=== PATIENT | male | born 1990 | race Caucasian/White ===

== ENCOUNTER 2016-08-30 22:54 | Inpatient (IN) | payer OTHER ==
--- NOTE | 2016-08-30 23:06 | C.PDOC ---
<Blane Morgan E - Last Filed: 08/30/16 23:06> <Iban Newton R - Last Filed: 08/31/16 00:20> Time Seen by Provider: 08/30/16 22:59 Chief Complaint (Nursing): Substance Abuse Past Medical History - Medical History PMH: Denies: Diabetes, Hepatitis, HIV, HTN, Chronic Kidney Disease, Seizures, Sexually Transmitted Disease - Social History Hx Tobacco Use: Yes Hx Alcohol Use: Yes Hx Substance Use: Yes - Immunization History Hx Tetanus Toxoid Vaccination: No Hx Influenza Vaccination: No Hx Pneumococcal Vaccination: No <Blane Morgan - Last Filed: 08/30/16 23:06> ED Course And Treatment O2 Sat by Pulse Oximetry: 98 <Blane Morgan - Last Filed: 08/30/16 23:06> - Laboratory Results Result Diagrams: 08/30/16 23:58 <Iban Newton - Last Filed: 08/31/16 00:20> Medical Decision Making <Blane Morgan - Last Filed: 08/30/16 23:06> <Iban Newton - Last Filed: 08/31/16 00:20> Medical Decision Makin: alcohol abuse. BIB Police for safety, no SI/HI, pending sobriety. (Blane Morgan)
[2016-08-30] MEDS ORDERED: Sodium Chloride 0.9% 1,000 ML IV ONE (23:16)
[2016-08-30] MEDS ORDERED: Sodium Chloride 0.9% 1,000 ML ONE (23:26)
[2016-08-31 00:03] LABS: BASO # 0.1 K/uL (0.0-0.2); EOS % 0.1 % (0.0-4.0); HEMOGLOBIN 17.1 g/dL (12.0-18.0); LYMPH # 2.9 K/uL (1.0-4.3); LYMPH % 19.1 % (20.0-40.0); MEAN CELL VOLUME 85.3 fL (80.0-94.0); MEAN CORPUSCULAR HEMOGLOBIN 28.7 pg (27.0-31.0); MEAN CORPUSCULAR HGB CONC 33.7 g/dL (33.0-37.0); MEAN PLATELET VOLUME 7.1 fL (7.2-11.7); MONO # 0.7 K/uL (0.0-0.8); MONO % 4.4 % (0.0-10.0); NEUT # 11.4 K/uL (1.8-7.0); NEUT % 75.4 % (50.0-75.0); NRBC % 0.2 % (0.0-2.0); RBC 5.97 Mil/uL (4.40-5.90); RED CELL DISTRIBUTION WIDTH 13.7 % (11.5-14.5); WHITE BLOOD COUNT 15.1 K/uL (4.8-10.8)
--- NOTE | 2016-08-31 00:15 | C.PDOC ---
History Of Present Illness A 25 y/o M comes in for ETOH intoxication and epigastic pain and vomiting that began today. Denies suicidal, homicidal, fever, chills, nausea, diarrhea, chest pain, SOB, or any other complaints. Time Seen by Provider: 08/30/16 22:59 Chief Complaint (Nursing): Substance Abuse History Per: Patient History/Exam Limitations: no limitations Onset/Duration Of Symptoms: Hrs Current Symptoms Are (Timing): Still Present Suicide/Self Injury Attempted (Context): None Modifying Factor(s): Alcohol Severity: Mild Associated Symptoms: denies: Suicidal Thoughts, Suicidal Plan Involuntary Hold By: None Recent travel outside of the [place]: No Additional History Per: Patient Past Medical History Reviewed: Historical Data, Nursing Documentation, Vital Signs Vital Signs: Last Vital Signs Temp 97.7 F 08/31/16 06:10 Pulse 72 08/31/16 06:10 Resp 16 08/31/16 06:10 BP 127/82 08/31/16 06:10 Pulse Ox 96 08/31/16 06:10 - Medical History PMH: Denies: Diabetes, Hepatitis, HIV, HTN, Chronic Kidney Disease, Seizures, Sexually Transmitted Disease - PreCision Dermatology Procedures DETOXIFICATION SERVICES FOR SUBSTANCE ABUSE TREATMENT (03/14/15) GROUP PSYCHOTHERAPY (03/14/15) Family History: States: Unknown Family Hx - Social History Hx Tobacco Use: Yes Hx Alcohol Use: Yes Hx Substance Use: Yes - Immunization History Hx Tetanus Toxoid Vaccination: No Hx Influenza Vaccination: No Hx Pneumococcal Vaccination: No Review Of Systems Except As Marked, All Systems Reviewed And Found Negative. Constitutional: Negative for: Fever, Chills Cardiovascular: Negative for: Chest Pain Respiratory: Negative for: Shortness of Breath Gastrointestinal: Positive for: Vomiting, Abdominal Pain. Negative for: Nausea , Diarrhea Physical Exam - Physical Exam Appears: Non-toxic, No Acute Distress Skin: Warm, Dry Head: Atraumatic, Normacephalic Cardiovascular: Rhythm Regular Respiratory: Normal Breath Sounds, No Accessory Muscle Use, No Rales, No Rhonchi , No Wheezing Gastrointestinal/Abdominal: Soft, Tenderness (Epigastric tenderness), No Guarding, No Rebound Neurological/Psych: Oriented x3, Normal Speech, Normal Cognition, Other (Awake and alert) ED Course And Treatment - Laboratory Results Result Diagrams: 08/30/16 23:58 08/30/16 23:58 O2 Sat by Pulse Oximetry: 98 (RA) Pulse Ox Interpretation: Normal Medical Decision Making Medical Decision Making: Impression: A 25 y/o M comes in for etoh intoxication and epigastic pain and vomiting that began today. Plans: -Blood labs -Zofran -Pepcid -IV fluids 2300: alcohol abuse. BIB Police for safety, no SI/HI, pending sobriety Disposition Discussed With Dr.: Stephen Starks Doctor Will See Patient In The: Hospital Counseled Patient/Family Regarding: Diagnosis - Disposition Disposition: HOSPITALIZED Disposition Time: 06:42 Condition: STABLE - POA Present On Arrival: None - Clinical Impression Clinical Impression: Alcohol abuse, Depression, Depressive disorder - Scribe Statement The provider has reviewed the documentation as recorded by the Scribe Kiera brady All medical record entries made by the Scribe were at my direction and personally dictated by me. I have reviewed the chart and agree that the record accurately reflects my personal performance of the history, physical exam, medical decision making, and the department course for this patient. I have also personally directed, reviewed, and agree with the discharge instructions and disposition.
[2016-08-31 00:21] LABS: ALB/GLOB RATIO 1.3 (1.0-2.1); ALBUMIN 4.4 g/dL (3.5-5.0); ALT/SGPT 59 U/L (21-72); AST/SGOT 54 U/L (17-59); BLOOD UREA NITROGEN 16 mg/dL (9-20); CALCIUM 8.2 mg/dl (8.6-10.4); GFR AFRICAN-AMERICAN > 60; GFR NON-AFRICAN AMERICAN > 60; LIPASE 167 U/L (23-300)
[2016-08-31 06:29] LABS: URINE BACTERIA RARE (<OCC); URINE BILIRUBIN NEGATIVE (NEGATIVE); URINE BLOOD 2+ (NEGATIVE); URINE CLARITY Clear (Clear); URINE COLOR Yellow (YELLOW); URINE GLUCOSE (UA) NORMAL (Normal); URINE LEUKOCYTE ESTERASE NEG Leu/uL (Negative); URINE NITRATE NEGATIVE (NEGATIVE); URINE PROTEIN 2+ mg/dL (NEGATIVE); URINE UROBILINOGEN NORMAL mg/dL (0.2-1.0)
[2016-08-31 06:38] LABS: BARBITURATES, UR NEGATIVE (NEGATIVE)
[2016-08-31 06:39] LABS: BENZODIAZEPINES, UR NEGATIVE (NEGATIVE)
[2016-08-31 06:41] LABS: OPIATES, UR NEGATIVE (NEGATIVE)
[2016-08-31 06:42] LABS: PHENCYCLIDINE, UR NEGATIVE (NEGATIVE)
[2016-08-31] MEDS ORDERED: Lidocaine 2% Viscous 100 ml PO STA (08:48)
[2016-08-31] MEDS ORDERED: Belladonna-Phenobarbital PO STA (08:48)
[2016-08-31] MEDS ORDERED: Aluminum Hydroxide/Magnesium Hydroxide Susp (30 mL) PO STA (08:48)
[2016-08-31] MEDS ORDERED: Sodium Chloride 0.9% 1,000 ML IV ONE (08:48)
[2016-08-31] MEDS ORDERED: Sodium Chloride 0.9% 1,000 ML ONE (08:53)
[2016-08-31] MEDS ORDERED: Aluminum Hydroxide/Magnesium Hydroxide Susp (30 mL) ONE (09:10)
[2016-08-31] MEDS ORDERED: Belladonna-Phenobarbital ONE (09:10)
[2016-08-31 09:23] LABS: BASO # 0.1 K/uL (0.0-0.2); BASO % 0.8 % (0.0-2.0); EOS # 0.1 K/uL (0.0-0.7); EOS % 0.5 % (0.0-4.0); HEMOGLOBIN 14.5 g/dL (12.0-18.0); LYMPH # 4.6 K/uL (1.0-4.3); LYMPH % 40.8 % (20.0-40.0); MEAN CELL VOLUME 85.2 fL (80.0-94.0); MEAN CORPUSCULAR HEMOGLOBIN 28.6 pg (27.0-31.0); MEAN CORPUSCULAR HGB CONC 33.6 g/dL (33.0-37.0); MEAN PLATELET VOLUME 7.1 fL (7.2-11.7); MONO # 0.7 K/uL (0.0-0.8); MONO % 5.9 % (0.0-10.0); NEUT # 5.8 K/uL (1.8-7.0); RBC 5.08 Mil/uL (4.40-5.90); RED CELL DISTRIBUTION WIDTH 13.5 % (11.5-14.5); WHITE BLOOD COUNT 11.2 K/uL (4.8-10.8)
--- NOTE | 2016-08-31 10:32 | PCM.BM ---
Treatment Plan Problems - Problems identified on initial assessmt Problem 1 Date Initiated: 08/31/16 Time Initiated: 10:30 Date resolved: 09/02/16 Assessment reference: NA Status: Active Priority: 1 Treatment assets and liabiliti Patient Assests: cooperative Patient Liabilities: substance abuse
--- NOTE | 2016-08-31 11:27 | PCM.PSYCH ---
Initial Psychiatric Evaluation - Initial Psychiatric Evaluation Type of Admission: Voluntary Legal Status: Capacity Chief Complaint (in patient's own words): 'I am seeing things.' History of Present Illness and Precipitating Events: Pt. is a 25 y/o HM from [facility], was brought to Ed by ambulance and [place] police after they found him intoxicated. Pt was intoxicated, confused, and disorganized. Pt. had a BAL of 257. Pt. remained superficially cooperative but guarded about the details. He reports that he has been feeling depressed because he is homesick and wants to return to [facility]. Pt. reports that he is currently living with his father, but he does not feel connected to him. Pt. reports that he saw his father for the first time when he was about 10 years old. Pt. reports that he sometimes self-cut when he feels depressed. He reports of drinking 3-4 pints on a daily basis. Yesterday he consumed more than 4 pnts of vodka and found himself in the hospital. It was unclear that if pt attempted suicide by OD on alcohol. He reports depressed mood, poor sleep and poor appetite. He also reports visual hallucinations of people and animals and persecutory delusions that people are following him. However he denies any AH. Pt. feels that he drinks alcohol because of the loneliness and his desire to return back to his home country. He reports withdrawal symptoms including shakes, nausea, abdominal upset, headache and anxiety. PMH None reported Past Psychiatric History - Past Psychiatric History Previous Treatment History: Inpatient Pertinent Medical Hx (Current Medical&Sleep Prob, Allergies): Allergies Allergy/AdvReac Type Severity Reaction Status Date / Time No Known Allergies Allergy Verified 03/14/15 09:38 No Known Home Med 08/31/16 Review of Systems - Review of Systems All systems: reviewed and no additional remarkable complaints except - Psychiatric Psychiatric: Anxiety, Irritability, Suicidal Ideation Mental Status Examination - Personal Presentation Personal Presentation: Looks stated age - Affect Affect: Constricted, Depressed - Motor Activity Motor Activity: Calm - Reliability in Providing Information Reliability in Providing Information: Good - Speech Speech: Organized - Mood Mood: Depressed, Anxious - Formal Thought Process Formal Thought Process: No Impairment - Obsessions/Compulsions Obsessions: No Compulsions: No - Cognitive Functions Orientation: Person, Place, Situation, Time Sensorium: Alert Attention/Concentration: Attentive Abstract Thinking: Trenary Estimate of Intelligence: Below average Judgement: Imparied, as evidence by: Poor judgement, Imparied, as evidence by: Lack of insight into illness - Risk Risk: Suicidal, Withdrawal, Diminished functioning - Strength & Assets Inventory Strength & Assets Inventory: Cooperative DSM 5 DX - DSM 5 DSM 5 Diagnosis: Major depressive disorder recurrent severe without psychotic features Alcohol use disorder severe Alcohol withdrawal uncomplicated - Recommended/Plan of Treatment Treatment Recommendations and Plan of Treatment: Major depressive disorder recurrent severe without psychotic features CBT Psychoeducation Supportive therapy, group therapy, individual therapy Paxil 10 mg by mouth daily Neurontin 100 mg by mouth 3 times a day Trazodone 50 mg by mouth daily at bedtime Alcohol use disorder severe CBT Psychoeducation Supportive therapy, individual therapy Use [place] for abstinence Alcohol withdrawal uncomplicated CBT Psychoeducation Supportive therapy, individual therapy Librium when necessary Start Librium taper Start folic acid/thiamine/multivitamin - Smoking Cessation Smoking Cessation Initiated: No
[2016-08-31] MEDS ORDERED: Pneumococcal 23-Valent Vaccine IM ONE (11:43)
[2016-08-31] MEDS: Multiple Vitamins Tab PO SCH (11:48)
--- NOTE | 2016-08-31 11:58 | PCM.BM ---
Treatment Plan Problems - Problems identified on initial assessmt Problem 1 Date Initiated: 08/31/16 Time Initiated: 10:30 Date resolved: 09/02/16 Assessment reference: NA Status: Active Priority: 1 Treatment assets and liabiliti Patient Assests: cooperative Patient Liabilities: substance abuse - Milieu Protocol Milieu Narrative: Major depressive disorder recurrent severe without psychotic features CBT Psychoeducation Supportive therapy, group therapy, individual therapy Paxil 10 mg by mouth daily Neurontin 100 mg by mouth 3 times a day Trazodone 50 mg by mouth daily at bedtime Alcohol use disorder severe CBT Psychoeducation Supportive therapy, individual therapy Use [place] for abstinence Alcohol withdrawal uncomplicated CBT Psychoeducation Supportive therapy, individual therapy Librium when necessary Start Librium taper Start folic acid/thiamine/multivitamin Discharge/Continuing Care - Additional Comments Major depressive disorder recurrent severe without psychotic features CBT Psychoeducation Supportive therapy, group therapy, individual therapy Paxil 10 mg by mouth daily Neurontin 100 mg by mouth 3 times a day Trazodone 50 mg by mouth daily at bedtime Alcohol use disorder severe CBT Psychoeducation Supportive therapy, individual therapy Use [place] for abstinence Alcohol withdrawal uncomplicated CBT Psychoeducation Supportive therapy, individual therapy Librium when necessary Start Librium taper Start folic acid/thiamine/multivitamin - Treatment Team Participation Patient/Family/SO Statement: Major depressive disorder recurrent severe without psychotic features CBT Psychoeducation Supportive therapy, group therapy, individual therapy Paxil 10 mg by mouth daily Neurontin 100 mg by mouth 3 times a day Trazodone 50 mg by mouth daily at bedtime Alcohol use disorder severe CBT Psychoeducation Supportive therapy, individual therapy Use [place] for abstinence Alcohol withdrawal uncomplicated CBT Psychoeducation Supportive therapy, individual therapy Librium when necessary Start Librium taper Start folic acid/thiamine/multivitamin
[2016-08-31 12:17] VITALS: O2SAT 95
--- NOTE | 2016-08-31 23:01 | PCM.BM ---
<Shiv Borrero - Last Filed: 08/31/16 23:00> Treatment Plan Problems - Problems identified on initial assessmt Depression Date Initiated: 08/31/16 Time Initiated: 12:30 Date resolved: 09/02/16 Assessment reference: NA Status: Active Priority: 1 Alcohol abuse Date Initiated: 08/31/16 Time Initiated: 12:30 Assessment reference: NA Status: Active Treatment assets and liabiliti Patient Assests: cooperative Patient Liabilities: substance abuse - Milieu Protocol Milieu Narrative: Major depressive disorder recurrent severe without psychotic features CBT Psychoeducation Supportive therapy, group therapy, individual therapy Paxil 10 mg by mouth daily Neurontin 100 mg by mouth 3 times a day Trazodone 50 mg by mouth daily at bedtime Alcohol use disorder severe CBT Psychoeducation Supportive therapy, individual therapy Use [place] for abstinence Alcohol withdrawal uncomplicated CBT Psychoeducation Supportive therapy, individual therapy Librium when necessary Start Librium taper Start folic acid/thiamine/multivitamin Discharge/Continuing Care - Additional Comments Major depressive disorder recurrent severe without psychotic features CBT Psychoeducation Supportive therapy, group therapy, individual therapy Paxil 10 mg by mouth daily Neurontin 100 mg by mouth 3 times a day Trazodone 50 mg by mouth daily at bedtime Alcohol use disorder severe CBT Psychoeducation Supportive therapy, individual therapy Use [place] for abstinence Alcohol withdrawal uncomplicated CBT Psychoeducation Supportive therapy, individual therapy Librium when necessary Start Librium taper Start folic acid/thiamine/multivitamin - Treatment Team Participation Patient/Family/SO Statement: Major depressive disorder recurrent severe without psychotic features CBT Psychoeducation Supportive therapy, group therapy, individual therapy Paxil 10 mg by mouth daily Neurontin 100 mg by mouth 3 times a day Trazodone 50 mg by mouth daily at bedtime Alcohol use disorder severe CBT Psychoeducation Supportive therapy, individual therapy Use [place] for abstinence Alcohol withdrawal uncomplicated CBT Psychoeducation Supportive therapy, individual therapy Librium when necessary Start Librium taper Start folic acid/thiamine/multivitamin <Stephen Starks - Last Filed: 09/05/16 01:11> Treatment Plan Problems - Problems identified on initial assessmt Depression Date Initiated: 08/31/16 Time Initiated: 12:30 Date resolved: 09/02/16 Assessment reference: NA Status: Active Priority: 1 Alcohol abuse Date Initiated: 08/31/16 Time Initiated: 12:30 Assessment reference: NA Status: Active Problem 1 Date Initiated: 08/31/16 Time Initiated: 10:30 Date resolved: 09/02/16 Assessment reference: NA Status: Active Priority: 1 - Diagnosis (1) Depression Status: Acute Interventions: 09/02/16 11:17 Attend groups, take meds (2) Alcohol abuse Status: Acute Interventions: 09/02/16 11:17 Attend groups, take meds
[2016-09-01] MEDS: Multiple Vitamins Tab PO SCH (09:34)
--- NOTE | 2016-09-01 10:40 | PCM.PYCHPN ---
Psychiatric Progress Note - Psychiatric Progress Note Patient seen today, length of contact: 15 min Patient Chief Complaint: I am feeling depressed' Problems Identified/Issues Discussed: Pt seen and evaluated, and discussed with the staff. Pt remained depressed and isolated. He reports depressed mood, feelings of hopelessness, poor sleep and poor appetite. He also reports visual hallucinations of people and animals and persecutory delusions that people are following him. He reports withdrawal symptoms including shakes, nausea, abdominal upset, headache and anxiety. He remained delusional and paranoid and continued to have thought blocking. Supportive therapy was given. Medication Change: Yes (librium taper, incresae neurontin) Medical Record Reviewed: Yes Mental Status Examination - Cognitive Function Orientation: Person, Place, Situation, Time Memory: Intact Attention: WNL Concentration: Poor Association: WNL Fund of Knowledge: Poor - Mood Mood: Depressed, Anxious - Affect Affect: Constricted, Depressed - Speech Speech: Soft - Formal Thought Process Formal Thought Process: Hallucinations, Delusions, Paranoia - Suicidal Ideation Suicidal Ideation: No - Homicidal Ideation Homicidal Ideation: No Goal/Treatment Plan - Goal/Treatment Plan Need for Continued Stay: Discharge may exacerbated symptoms, Severe functional impairment Progress Toward Problem(s) and Goals/Treatment Plan: Major depressive disorder recurrent severe without psychotic features CBT Psychoeducation Supportive therapy, group therapy, individual therapy Paxil 10 mg by mouth daily Neurontin 300 mg by mouth 3 times a day Trazodone 50 mg by mouth daily at bedtime Alcohol use disorder severe CBT Psychoeducation Supportive therapy, individual therapy Use [place] for abstinence Alcohol withdrawal uncomplicated CBT Psychoeducation Supportive therapy, individual therapy Librium when necessary Librium taper Folic acid/thiamine/multivitamin - Smoking Cessation Smoking Cessation Initiated: No
[2016-09-02] MEDS: Multiple Vitamins Tab PO SCH (10:23)
--- NOTE | 2016-09-02 18:49 | PCM.PYCHPN ---
Psychiatric Progress Note - Psychiatric Progress Note Patient seen today, length of contact: 15 min Patient Chief Complaint: 'I am feeling little better.' Problems Identified/Issues Discussed: Pt seen and evaluated, and discussed with the staff. Pt still reports depressed mood, feelings of hopelessness, poor sleep and poor appetite. He still reports visual hallucinations and persecutory delusions. He reports withdrawal symptoms including shakes, nausea, headache and anxiety. He remained delusional and paranoid and continued to have thought blocking. He is taking medications and denies any side effects. Supportive therapy was given. Medication Change: Yes (librium taper, incresae neurontin) Medical Record Reviewed: Yes Mental Status Examination - Cognitive Function Orientation: Person, Place, Situation, Time Memory: Intact Attention: WNL Concentration: Poor Association: WNL Fund of Knowledge: Poor - Mood Mood: Depressed, Anxious - Affect Affect: Constricted, Depressed - Speech Speech: Soft - Formal Thought Process Formal Thought Process: Hallucinations, Delusions, Paranoia - Suicidal Ideation Suicidal Ideation: No - Homicidal Ideation Homicidal Ideation: No Goal/Treatment Plan - Goal/Treatment Plan Need for Continued Stay: Discharge may exacerbated symptoms, Severe functional impairment Progress Toward Problem(s) and Goals/Treatment Plan: Major depressive disorder recurrent severe without psychotic features CBT Psychoeducation Supportive therapy, group therapy, individual therapy Paxil 10 mg by mouth daily Neurontin 300 mg by mouth 3 times a day Trazodone 50 mg by mouth daily at bedtime Alcohol use disorder severe CBT Psychoeducation Supportive therapy, individual therapy Use [place] for abstinence Alcohol withdrawal uncomplicated CBT Psychoeducation Supportive therapy, individual therapy Librium when necessary Librium taper Folic acid/thiamine/multivitamin - Smoking Cessation Smoking Cessation Initiated: No
[2016-09-03 09:33] VITALS: BP 126/82; PULSE 101; RESP 20; TEMP 98.2
[2016-09-03] MEDS: Multiple Vitamins Tab PO SCH (10:24)
--- NOTE | 2016-09-03 10:41 | PCM.PYCHDC ---
Mental Status Examination - Mental Status Examination Orientation: Person, Place, Situation, Time Memory: Intact Mood: Neutral Affect: Constricted Speech: Soft Attention: WNL Concentration: WNL Association: WNL Fund of Knowledge: WNL Formal Thought Process: No Impairment Description of patient's judgement and insight: good, fair Psychotic Thoughts and Behaviors: denies any AVH Suicidal Ideation: No Current Homicidal Ideation?: No Discharge Summary - Discharge Note Reason for Hospitalization: Pt. is a 25 y/o HM from [facility], was brought to Ed by ambulance and [place] police after they found him intoxicated. Pt was intoxicated, confused, and disorganized. Pt. had a BAL of 257. Pt. remained superficially cooperative but guarded about the details. He reports that he has been feeling depressed because he is homesick and wants to return to [facility]. Pt. reports that he is currently living with his father, but he does not feel connected to him. Pt. reports that he saw his father for the first time when he was about 10 years old. Pt. reports that he sometimes self-cut when he feels depressed. He reports of drinking 3-4 pints on a daily basis. Yesterday he consumed more than 4 pnts of vodka and found himself in the hospital. It was unclear that if pt attempted suicide by OD on alcohol. He reports depressed mood, poor sleep and poor appetite. He also reports visual hallucinations of people and animals and persecutory delusions that people are following him. However he denies any AH. Pt. feels that he drinks alcohol because of the loneliness and his desire to return back to his home country. He reports withdrawal symptoms including shakes, nausea, abdominal upset, headache and anxiety. Consultations:: List each consultation separately and include: 1. Reason for request. 2. Findings. 3. Follow-up Summary of Hospital Course include:: 1. Description of specific treatment plan utilized for patients during their course of treatmen. 2. Summarize the time- course for resolution of acute symptoms and/or regressed behaviors. 3. Describe issues identified and worked on during hospitalization. 4. Describe medication utilized. 5. Describe medical problems identified and treated. 6. Reassessment of suicide risk Summary of Hospital Course: During the course of his stay, patient (pt) started progressively improving and he no longer remained irritable, depressed, suicidal and agitated. His mood and withdrawal symptoms were improved and he started attending groups and meetings and started socializing. Patient denied any feelings of hopelessness, helplessness, and worthlessness, denied any problem with the sleep or appetite, denied suicidal ideation or homicidal ideation. Pt denied any auditory or visual hallucinations. Some changes were made in his current medications and patient was discharged on following medications. He tolerated these medications very well and denied any side effects. - Diagnosis (1) Depression Status: Acute (2) Alcohol abuse Status: Acute - Final Diagnosis (DSM 5) Condition upon Discharge: STABLE DSM 5: Major depressive disorder recurrent severe without psychotic features Alcohol use disorder severe Alcohol withdrawal uncomplicated Disposition: HOME/ ROUTINE Follow-up Treatment Plan: Education: Pt was educated and counseled about the risks and benefits of taking and not taking medications. Pt was educated and counseled about the risks of drinking and abusing drugs. Pt was educated and counseled to go to the ER or call 911 if pt develop suicidal ideation or homicidal ideation, worsening of symptoms or severe side effects of the meds. Prescriptions/Medication Reconciliation: PARoxetine [Paxil] 20 mg PO QAM #30 tab traZODone [Desyrel] 50 mg PO HS PRN #30 tab PRN Reason: Insomnia - Smoking Cessation Smoking Cessation Medication prescribed: No - Antipsychotic Medications Pt discharged on 2 or more routine antipsychotic medications: No
== END 2016-09-03 12:15 | disposition home or self-care (01) | DRG 750 ==
LOC: C.ER 22:54 → C.9OBSV 23:04 → OBSVTOIN 08-31 06:42 → C.9E 08-31 06:42 → C.5E 08-31 08:34
PROVIDERS: ADMIT Internal Medicine; ATTEND Psychiatry & Neurology Psychiatry
PROC: HZ2ZZZZ Detoxification Services for Substance Abuse Treatment (ICD-10-PCS; principal; 2016-08-31)
PROC: HZ42ZZZ Group Counseling for Substance Abuse Treatment, Cognitive-Behavioral (ICD-10-PCS; 2016-08-31)
PROC: HZ52ZZZ Individual Psychotherapy for Substance Abuse Treatment, Cognitive-Behavioral (ICD-10-PCS; 2016-08-31)
PROC: HZ59ZZZ Individual Psychotherapy for Substance Abuse Treatment, Supportive (ICD-10-PCS; 2016-08-31)
PROC: HZ56ZZZ Individual Psychotherapy for Substance Abuse Treatment, Psychoeducation (ICD-10-PCS; 2016-08-31)
PROC: HZ46ZZZ Group Counseling for Substance Abuse Treatment, Psychoeducation (ICD-10-PCS; 2016-08-31)
DX: F10.230 Alcohol dependence with withdrawal, uncomplicated (principal); F33.2 Major depressive disorder, recurrent severe without psychotic features; F17.210 Nicotine dependence, cigarettes, uncomplicated; Y90.8 Blood alcohol level of 240 mg/100 ml or more